=== PATIENT | female | born 1960 | race Caucasian/White ===

== ENCOUNTER → 2020-07-09 10:26 | Outpatient (BNVA) | payer MEDICARE, SELFPAY | PROVIDERS: Referring Provider Neurological Surgery; Visit Provider Specialist | DX: G43.109 Migraine with aura, not intractable, without status migrainosus (principal); F43.10 Post-traumatic stress disorder, unspecified; F41.9 Anxiety disorder, unspecified; F32.9 Major depressive disorder, single episode, unspecified; E66.01 Morbid (severe) obesity due to excess calories; Z68.37 Body mass index [BMI] 37.0-37.9, adult | CPT/HCPCS: 99204 ==

== ENCOUNTER 2020-07-17 13:46 | Outpatient (CLI) | payer MEDICARE, OTHER, SELFPAY ==
--- NOTE | 2020-07-17 13:56 | MR_ITS ---
WS: [id number] MRI BRAIN WITHOUT CONTRAST HISTORY: HEADACHE COMPARISON: None available. TECHNIQUE: Diffusion imaging, multiplanar T1, T2 and FLAIR imaging obtained. No evidence for acute infarct or hemorrhage. Pitts-white matter differentiation is normal. No remote or acute infarcts are volume loss. Ventricles and extra-axial spaces are normal. No inferior displacement of cerebellar tonsils. The sella turcica and pituitary gland are unremarkabl e. Posterior fossa is also unremarkable. Dural venous sinuses and [place] demonstrate no abnormality on this unenhanced studies. Paranasal sinuses: Small mucous retention cysts in the floors of the maxillary sinuses. Mastoid air cells: Normal. Calvarium and scalp: Intact. MR/MR head wo con* [id number] IMPRESSION: 1. Unremarkable noncontrast CT brain. 2. No acute infarct or hemorrhage.
== END 2020-07-17 13:47 | disposition home or self-care (01) ==
PROVIDERS: PCP Nurse Practitioner Family; Visit Provider Specialist
DX: R51 Headache (principal)
CPT/HCPCS: 70551

== ENCOUNTER → 2020-08-12 14:24 | Outpatient (BNVA) | payer MEDICARE, OTHER, SELFPAY | PROVIDERS: PCP Nurse Practitioner Family; Visit Provider Specialist | DX: G43.109 Migraine with aura, not intractable, without status migrainosus (principal); R56.9 Unspecified convulsions | CPT/HCPCS: 95816 ==

== ENCOUNTER → 2020-12-18 11:31 | Outpatient (BNVA) | payer MEDICARE, OTHER, SELFPAY | PROVIDERS: PCP Nurse Practitioner Family; Visit Provider Specialist | DX: R56.9 Unspecified convulsions (principal); G43.109 Migraine with aura, not intractable, without status migrainosus; F43.10 Post-traumatic stress disorder, unspecified; F41.9 Anxiety disorder, unspecified; F32.9 Major depressive disorder, single episode, unspecified; E66.01 Morbid (severe) obesity due to excess calories; Z68.39 Body mass index [BMI] 39.0-39.9, adult | CPT/HCPCS: 99214 ==

== ENCOUNTER → 2022-12-28 14:22 | Outpatient (BNVA) | payer MEDICARE, OTHER, MEDICAID, SELFPAY | PROVIDERS: PCP Nurse Practitioner Family; Visit Provider Internal Medicine | DX: E04.2 Nontoxic multinodular goiter (principal); E06.3 Autoimmune thyroiditis; E03.8 Other specified hypothyroidism; F41.9 Anxiety disorder, unspecified; F32.9 Major depressive disorder, single episode, unspecified; R00.0 Tachycardia, unspecified; Z79.890 Hormone replacement therapy; Z87.440 Personal history of urinary (tract) infections | CPT/HCPCS: 36415; 84439; 84443; 99204; 99214 ==

== ENCOUNTER 2023-01-28 13:29 | Outpatient (CLI) | payer MEDICARE, MEDICAID, OTHER, SELFPAY ==
--- NOTE | 2023-01-28 13:00 | USR_ITS ---
PROCEDURE INFORMATION: Exam: US Soft Tissue Head and Neck, Thyroid Exam date and time: 01/28/2023 1:57 PM Age: 62 years old Clinical indication: Abnormal findings; Other abnormal lab; Abnormal blood work; Additional info: Thyroid nodules TECHNIQUE: Imaging protocol: Real-time ultrasound scan of the neck with image documentation. Exam focused on the thyroid. COMPARISON: MR head wo con* [id number] 07/17/2020 1:46 PM FINDINGS: Thyroid gland is small, atrophic and heterogeneous in echotexture and may be secondary to chronic thyroiditis. 1.1 x 0.6 x 0.8 cm circumscribed hypoechoic solid nodule right lobe, indeterminate (TR 4). No other nodules identified. Solitary benign-appearing lymph node right cervical janina chain. No suspicious lymph nodes detected. US/US thyroid [id number] IMPRESSION: 1. Atrophic thyroid gland that may be secondary to chronic thyroiditis. 2. 1.1 x 0.6 x 0.8 cm circumscribed solid nodule right lobe, nonspecific. Recommend repeat ultrasound exam in 1 year for continued surveillance.
[2023-01-28 15:00] LABS: Free T4 Free Thyroxine 1.02 ng/dL (0.82-1.77)
== END 2023-01-28 13:30 | disposition home or self-care (01) ==
LOC: LAB 13:34
PROVIDERS: PCP Nurse Practitioner Family; Visit Provider Internal Medicine
DX: E03.8 Other specified hypothyroidism (principal); E04.2 Nontoxic multinodular goiter; E06.3 Autoimmune thyroiditis; F32.9 Major depressive disorder, single episode, unspecified; F41.9 Anxiety disorder, unspecified
CPT/HCPCS: 36415; 76536; 84439; 84443

== ENCOUNTER → 2023-03-03 14:18 | Outpatient (BNVA) | payer MEDICARE, MEDICAID, OTHER, SELFPAY | PROVIDERS: PCP Nurse Practitioner Family; Visit Provider Internal Medicine | DX: E03.8 Other specified hypothyroidism (principal); E06.3 Autoimmune thyroiditis; E04.2 Nontoxic multinodular goiter; R00.0 Tachycardia, unspecified; Z78.0 Asymptomatic menopausal state; N95.0 Postmenopausal bleeding; Z75.8 Other problems related to medical facilities and other health care; Z79.890 Hormone replacement therapy | CPT/HCPCS: 99214 ==

== ENCOUNTER → 2023-04-01 14:03 | Outpatient (BNVA) | payer MEDICARE, OTHER, SELFPAY | PROVIDERS: Visit Provider Family Medicine | DX: D50.9 Iron deficiency anemia, unspecified (principal); Z86.2 Personal history of diseases of the blood and blood-forming organs and certain disorders involving the immune mechanism; Z13.6 Encounter for screening for cardiovascular disorders; E03.8 Other specified hypothyroidism; E06.3 Autoimmune thyroiditis | CPT/HCPCS: 80053; 80061; 82728; 83550; 84439; 84443; 84480; 85025 ==

== ENCOUNTER → 2023-06-03 13:25 | Outpatient (BNVA) | payer MEDICARE, OTHER, MEDICAID, SELFPAY | PROVIDERS: Visit Provider Family Medicine | DX: R79.89 Other specified abnormal findings of blood chemistry (principal) | CPT/HCPCS: 80048 ==

== ENCOUNTER 2023-07-23 17:13 | Outpatient (CLI) | payer MEDICARE, OTHER, SELFPAY | END 2023-07-23 17:14 | disposition home or self-care (01) | LOC: RAD 17:14 | PROVIDERS: PCP Family Medicine; Visit Provider Family Medicine | DX: E04.2 Nontoxic multinodular goiter (principal); E03.8 Other specified hypothyroidism; E06.3 Autoimmune thyroiditis; R00.0 Tachycardia, unspecified; Z78.0 Asymptomatic menopausal state; N95.0 Postmenopausal bleeding; Z86.2 Personal history of diseases of the blood and blood-forming organs and certain disorders involving the immune mechanism; Z79.890 Hormone replacement therapy | CPT/HCPCS: 99214 ==

== ENCOUNTER 2023-08-20 11:47 | Outpatient (CLI) | payer MEDICARE, OTHER, SELFPAY ==
--- NOTE | 2023-08-20 12:08 | MM_ITS ---
WS: [id number] BILATERAL SCREENING DIGITAL TOMOSYNTHESIS MAMMOGRAM WITH CAD HISTORY: screening mammogram COMPARISON: 12/01/2019. This mammogram which has been submitted from an outside medical institution is nearly nondiagnostic as submitted. Bilateral CC and MLO views with tomosynthesis and synthetic mammography submitted. Computer aided det ection analyzed. Breast composition: There are scattered areas of fibroglandular density. No suspicious masses, microc alcifications or architectural distortion. The well-circumscribed nodule measuring 9 mm in the anteri or RIGHT breast near 12:00 was also present on the prior study without increase in size. IMPRESSION: MM/[place] [id number] BI-RADS: 2-Benign FOLLOW UP: 1 Year Follow-up
== END 2023-08-20 11:48 | disposition home or self-care (01) ==
LOC: RAD 11:48
PROVIDERS: PCP Family Medicine; Visit Provider Family Medicine
DX: Z12.31 Encounter for screening mammogram for malignant neoplasm of breast (principal); R30.0 Dysuria
CPT/HCPCS: 77063; 77067; 81000; 87077; 87086; 87184

== ENCOUNTER → 2023-11-25 11:11 | Outpatient (BNVA) | payer MEDICARE, OTHER, SELFPAY | PROVIDERS: PCP Family Medicine; Visit Provider Internal Medicine | DX: Z86.2 Personal history of diseases of the blood and blood-forming organs and certain disorders involving the immune mechanism (principal); E04.2 Nontoxic multinodular goiter; E03.8 Other specified hypothyroidism; E06.3 Autoimmune thyroiditis; R00.0 Tachycardia, unspecified; Z78.0 Asymptomatic menopausal state; N95.0 Postmenopausal bleeding; Z79.890 Hormone replacement therapy | CPT/HCPCS: 99214 ==

== ENCOUNTER → 2024-04-05 11:04 | Outpatient (BNVA) | payer MEDICARE, OTHER, SELFPAY | PROVIDERS: PCP Family Medicine; Visit Provider Internal Medicine | DX: Z86.2 Personal history of diseases of the blood and blood-forming organs and certain disorders involving the immune mechanism (principal); E04.2 Nontoxic multinodular goiter; E03.8 Other specified hypothyroidism; E06.3 Autoimmune thyroiditis; R00.0 Tachycardia, unspecified; Z78.0 Asymptomatic menopausal state; N95.0 Postmenopausal bleeding; Z79.890 Hormone replacement therapy | CPT/HCPCS: 99214 ==

== ENCOUNTER 2024-05-04 06:00 | Outpatient (CLI) | payer MEDICARE, OTHER, SELFPAY | END 2024-05-04 06:01 | disposition home or self-care (01) | LOC: RAD 07-16 07:07 | PROVIDERS: PCP Family Medicine; Visit Provider Psychiatry & Neurology Neurology | DX: G25.0 Essential tremor (principal); R56.9 Unspecified convulsions; E55.9 Vitamin D deficiency, unspecified; G45.9 Transient cerebral ischemic attack, unspecified; L30.4 Erythema intertrigo; Z13.6 Encounter for screening for cardiovascular disorders; F41.9 Anxiety disorder, unspecified; F32.9 Major depressive disorder, single episode, unspecified; E53.8 Deficiency of other specified B group vitamins | CPT/HCPCS: 36415; 80053; 81241; 82306; 82607; 82746; 83090; 83735; 83921; 85025; 85210; 85300; 85613; 85730; 86140; 86146; 86147 ==

== ENCOUNTER → 2024-05-04 10:00 | Outpatient (BNVA) | payer MEDICARE, OTHER, SELFPAY | PROVIDERS: PCP Family Medicine; Visit Provider Psychiatry & Neurology Neurology | DX: R27.0 Ataxia, unspecified (principal); G25.0 Essential tremor; G43.111 Migraine with aura, intractable, with status migrainosus; R29.898 Other symptoms and signs involving the musculoskeletal system; G45.9 Transient cerebral ischemic attack, unspecified; R47.89 Other speech disturbances | CPT/HCPCS: 99203 ==

== ENCOUNTER 2024-05-16 12:47 | Outpatient (CLI) | payer MEDICARE, OTHER, SELFPAY ==
--- NOTE | 2024-05-16 13:00 | USCV_ITS ---
Staci Malave Age: 63 Gender: F : 1960 Exam Date: 05/16/2024 13:12 Ordering Phys: Javier Gallegos MD Technologist: JU [place]am Location[place] [facility] [place]: TIA Risk Factors: Previous Vascular Surgery: Right Brachial BP: / Left Brachial BP: / Right Left Velocity (cm/s) Spectral Plaque Velocity (cm/s) Spectral Plaque Syst/Diast Broadening Syst/Diast Broadening 88.70/ 21.60 Prox CCA 89.60 / 20.90 84.20/ 25.90 Mid CCA 90.50 / 23.80 82.70/ 27.50 Distal CCA 78.70 / 23.50 65.20/ 16.10 Prox ICA 61.20 / 13.30 68.10/ 24.90 Mid ICA 69.40 / 25.50 79.10/ 27.60 Distal ICA 50.40 / 21.40 58.00 ECA 84.70 1.00 ICA/CCA 0.90 Antegrade Vertebral Antegrade 38.20/ 13.30 cm/s 54.10/ 13.30 cm/s Tri Subclavian Tri 65.80 106.1 0 CONCLUSIONS Intimal thickening in the common carotid arteries and internal carotid arteries bilaterally. Right ICA stenosis <50%. Left ICA stenosis <50%. Normal antegrade Doppler flow noted in the right vertebral artery. Normal antegrade Doppler flow noted in the left vertebral artery. Vincent De León MD (Electronically Signed) Final Date: 16 May 2024 14:46 S
== END 2024-05-16 12:48 | disposition home or self-care (01) ==
LOC: RAD 12:48
PROVIDERS: PCP Family Medicine; Visit Provider Psychiatry & Neurology Neurology
DX: I65.23 Occlusion and stenosis of bilateral carotid arteries (principal)
CPT/HCPCS: 93306; 93880

== ENCOUNTER 2024-06-08 15:15 | Outpatient (CLI) | payer MEDICARE, OTHER, SELFPAY ==
--- NOTE | 2024-06-08 15:15 | MR_ITS ---
WS: [id number] MRI LUMBAR SPINE WITH AND WITHOUT CONTRAST. HISTORY: M48.061 - Spinal stenosis, lumbar region without neurogen... COMPARISON: None available. TECHNIQUE: Sagittal and axial multisequence imaging is submitted. Postcontrast imaging MultiHance 18 mL IV. Moderate increase in thoracic kyphosis. Mild curvature thoracic and lumbar spines. Benign hemangioma at T3 and T5 and T12. No cord compression. Mild increase in the lumbar lordosis. No fractures or marrow edema. Disc spaces are well preserved. Disc spaces and vertebral body heights are well-preserved. Conus terminates normally at L1-2 disc level. L1-L2: Normal. L2-L3: Very mild disc bulging and facet arthritis. No stenosis. L3-L4: Mild annular disc bulging asymmetric to the LEFT. LEFT foraminal small disc protrusion. Mild l igamentum flavum and facet arthritis. There is mild disc encroachment upon the LEFT L3 and L4 nerve r oots. Mild foraminal stenosis. L4-L5: Mild disc bulging and mild facet and ligamentum flavum hypertrophy. No stenosis. L5-S1: Mild disc bulging with no disc protrusion or stenosis. No discitis or osteomyelitis. Normal vertebral body alignment. No mass. The conus is normal. There is no mass along the nerve roots. There is intermediate signal mass associated with the central RIGHT renal pelvis measuring 4.5 x 4.1 cm. There may have been partial enhancement on the postcontrast exam. MR/MR lumbar spine wo/w con [id number] IMPRESSION: 1. No high-grade central or foraminal stenosis. 2. Mild LEFT foraminal stenosis at L3-4 with very mild disc encroachment upon the L3 and L4 nerve roots. 3. Soft tissue mass in the RIGHT renal pelvis measures 4.5 x 4.1 cm. Recommend follow-up renal mass CT protocol for further evaluation. Multiphase CT should be performed. 4. No mass or abnormal enhancement near the cauda equina.
--- NOTE | 2024-06-08 16:00 | MR_ITS ---
WS: [id number] MRI BRAIN WITH AND WITHOUT CONTRAST HISTORY: R56.9 - Unspecified convulsions COMPARISON: 07/17/2020 TECHNIQUE: Multiplanar imaging performed through the brain with MultiHance 18 ml's IV. Subcortical diffusion abnormality in the anterior LEFT frontal lobe may represent a small lacunar inf arct. No T2 shine through is identified. No additional diffusion abnormalities.. Mild small vessel is chemic disease. No prior infarct. Mild atrophy. No hemorrhage. No susceptibility artifacts or prior lacunar infarcts. No hippocampal atrophy. Ventricles and extra-axial spaces are normal. Clivus and pituitary gland are normal. Visualized posterior fossa and brainstem are also normal. Postcontrast images are negative for masses or vascular malformations. Dural venous sinuses are normal. Paranasal sinuses: Well aerated with no significant disease. Mastoid air cells: Normal. Calvarium and scalp: Normal. MR/MR head wo/w con [id number] IMPRESSION: 1. Small focal area of diffusion abnormality in the subcortical LEFT frontal l obe. This is most likely a very small acute lacunar infarct. No additional sign al abnormalities are identified on the diffusion imaging. 2. Very minimal small vessel ischemic disease. 3. No large territory infarct or hemorrhage. 4. No mass.
[2024-06-08] MEDS: gadobenate dimeglumine 20 mL vial IV (16:07)
== END 2024-06-08 15:16 | disposition home or self-care (01) ==
LOC: RAD 15:16
PROVIDERS: PCP Family Medicine; Visit Provider Psychiatry & Neurology Neurology
DX: M48.061 Spinal stenosis, lumbar region without neurogenic claudication (principal); R56.9 Unspecified convulsions; G43.111 Migraine with aura, intractable, with status migrainosus; G45.9 Transient cerebral ischemic attack, unspecified; M51.37 Other intervertebral disc degeneration, lumbosacral region; M47.896 Other spondylosis, lumbar region
CPT/HCPCS: 70553; 72158; A9577

== ENCOUNTER 2024-07-05 10:55 | Oncology outpatient (recurring) (ONCR) | payer MEDICARE, OTHER, SELFPAY ==
[2024-07-05] MEDS: cyanocobalamin 1,000 mcg/mL SDV 1000 MCG IM (11:39)
[2024-07-05 11:50] LABS: Basophils # 0.1 10^3/uL (0.0-0.1); Basophils % 0.6 %; Eosinophils # 0.3 10^3/uL (0.0-0.8); Eosinophils % 3.2 %; Hematocrit 38.3 % (36-47); Lymphocytes # 3.3 10^3/uL (0.8-4.8); Lymphocytes % 37.8 %; Mean Corpuscular HGB Conc 32.6 g/dL (30-55); Mean Corpuscular Hemoglobin 38.9 pg (27-33); Mean Corpuscular Volume 119.3 fl (85-98); Mean Platelet Volume 12.9 fL (7.4-10.4); Monocytes # 0.6 10^3/uL (0.2-0.9); Monocytes % 6.5 %; Neutrophils # 4.49 10^3/uL (1.8-7.7); Neutrophils % 51.8 %; Nucleated Red Blood Cells % 0 %; Platelet Count 312 10^3/cmm (157-399); Red Blood Count 3.21 10^6/uL (3.85-5.65); Red Cell Distribution Width 16.9 % (12.1-15.1); White Blood Count 8.66 10^3/uL (3.29-11.43)
[2024-07-05 12:09] LABS: Alanine Aminotransferase 30 U/L (0-33); Albumin Level 4.5 g/dL (3.5-5.2); Alkaline Phosphatase 109 U/L (35-105); Anion Gap 15.9 (5-19); Aspartate Amino Transferase 26 U/L (0-32); Blood Urea Nitrogen 17 mg/dL (8-23); Calcium 9.7 mg/dL (8.5-10.5); Carbon Dioxide 21 mmol/L (22-29); Chloride 106 mmol/L (98-107); Creatinine Clr Calc Pharmacy 38.6573; Globulin 3.5 g/dL (1.3-4.6); Glomerular Filtration Rate 32.6 mL/min (90-130); Glucose 99 mg/dL (65-115); Iron 55 ug/dL (37-145); Lactate Dehydrogenase 174 U/L (135-214); Osmolality Calculated 290 mOsm/kg (285-295); Percent Saturation 15.5 % (20-50); Potassium 3.9 mmol/L (3.5-5.1); Sodium 139 mmol/L (136-145); Total Bilirubin 0.2 mg/dL (0.15-1.2); Total Iron Binding Capacity 353 mcg/dl; Unsaturated Iron Binding 298 ug/dL (112-347)
== END 2024-07-08 23:59 | disposition home or self-care (01) ==
PROVIDERS: Internal Medicine Medical Oncology; PCP Family Medicine; Visit Provider Psychiatry & Neurology Neurology
DX: Z53.9 Procedure and treatment not carried out, unspecified reason (principal); D64.9 Anemia, unspecified
CPT/HCPCS: 36415; 80053; 83540; 83550; 83615; 85025; 86340; 96372; 99205; J3420

== ENCOUNTER 2024-07-05 11:51 | Outpatient (CLI) | payer MEDICARE, OTHER, SELFPAY ==
[2024-07-05 12:51] LABS: Free T4 Free Thyroxine 1.28 ng/dL (0.82-1.77); Thyroid Stimulating Hormone 0.06 uIU/mL (0.27-4.20)
== END 2024-07-05 11:52 | disposition home or self-care (01) ==
LOC: LAB 11:53
PROVIDERS: Visit Provider Internal Medicine
DX: Z86.2 Personal history of diseases of the blood and blood-forming organs and certain disorders involving the immune mechanism (principal); E04.2 Nontoxic multinodular goiter; E03.8 Other specified hypothyroidism; E06.3 Autoimmune thyroiditis
CPT/HCPCS: 36415; 84439; 84443

== ENCOUNTER 2024-07-28 14:12 | Outpatient (CLI) | payer MEDICARE, OTHER, SELFPAY ==
--- NOTE | 2024-07-28 14:15 | US_ITS ---
WS: [id number] THYROID ULTRASOUND HISTORY: multiple nodules COMPARISON: 01/28/2023 Right lobe: 0.9 cm x 0.9 cm x 2.2 cm (w x ap x l). Volume: 0.9 cm3. Extremely small heterogeneous gland. There is a hypoechoic well-circumscribed soft tissue nodule asso ciated with the superior pole of the gland. This nodule measures 0.8 x 0.8 x 0.8 cm and is unchanged in size and appearance as compared to 01/28/2023. Left lobe: 1.0 cm x 1.0 cm x 2.6 cm (w x ap x l). Volume: 1.2 cm3. Atrophic heterogeneous gland. No discrete mass. Isthmus: 0.3 cm. Small LEFT cervical chain lymph node. US/US thyroid [id number] IMPRESSION: 1. Stable RIGHT thyroid nodule measuring 0.8 x 0.8 x 0.8 cm. No increased vasc ularity. Recommend yearly evaluation due to its appearance. There are no echoge rolando foci. 2. Marked atrophy and heterogeneity otherwise of the thyroid.
== END 2024-07-28 14:13 | disposition home or self-care (01) ==
LOC: RAD 14:14
PROVIDERS: PCP Family Medicine; Visit Provider Internal Medicine
DX: E04.1 Nontoxic single thyroid nodule (principal); E03.8 Other specified hypothyroidism; E06.3 Autoimmune thyroiditis; E03.4 Atrophy of thyroid (acquired)
CPT/HCPCS: 76536

== ENCOUNTER 2024-08-02 14:15 | Oncology outpatient (recurring) (ONCR) | payer MEDICARE, OTHER, SELFPAY ==
[2024-07-13] MEDS: cyanocobalamin 1,000 mcg/mL SDV 1000 MCG IM (15:37)
[2024-07-20] MEDS: cyanocobalamin 1,000 mcg/mL SDV 1000 MCG IM (15:35)
[2024-08-02 14:42] LABS: Basophils % 0.3 %; Eosinophils # 0.2 10^3/uL (0.0-0.8); Eosinophils % 2.4 %; Hematocrit 42.3 % (36-47); Lymphocytes # 3.2 10^3/uL (0.8-4.8); Mean Corpuscular HGB Conc 31.7 g/dL (30-55); Mean Corpuscular Hemoglobin 35.4 pg (27-33); Mean Corpuscular Volume 111.6 fl (85-98); Mean Platelet Volume 13.2 fL (7.4-10.4); Monocytes # 0.5 10^3/uL (0.2-0.9); Monocytes % 5.5 %; Neutrophils # 5.34 10^3/uL (1.8-7.7); Neutrophils % 57.5 %; Nucleated Red Blood Cells % 0 %; Platelet Count 248 10^3/cmm (157-399); Red Blood Count 3.79 10^6/uL (3.85-5.65); Red Cell Distribution Width 17.3 % (12.1-15.1); White Blood Count 9.29 10^3/uL (3.29-11.43)
[2024-08-02 15:02] LABS: Alanine Aminotransferase 19 U/L (0-33); Albumin Level 4.1 g/dL (3.5-5.2); Alkaline Phosphatase 96 U/L (35-105); Anion Gap 13.7 (5-19); Aspartate Amino Transferase 19 U/L (0-32); Blood Urea Nitrogen 10 mg/dL (8-23); Carbon Dioxide 24 mmol/L (22-29); Chloride 107 mmol/L (98-107); Globulin 3.3 g/dL (1.3-4.6); Glomerular Filtration Rate 35.1 mL/min (90-130); Glucose 85 mg/dL (65-115); Lactate Dehydrogenase 135 U/L (135-214); Osmolality Calculated 290 mOsm/kg (285-295); Potassium 3.7 mmol/L (3.5-5.1); Sodium 141 mmol/L (136-145); Total Bilirubin 0.3 mg/dL (0.15-1.2); Total Protein 7.4 g/dL (6.6-8.7)
[2024-08-02 15:10] LABS: Slide Review Slide Review Perform
[2024-08-02 15:17] LABS: Vitamin B12 472 pg/mL (232-1245)
[2024-08-02 15:25] LABS: Folate Level 3.6 ng/mL (4.8-37.3)
[2024-08-02] MEDS: cyanocobalamin 1,000 mcg/mL SDV 1000 MCG IM (16:15)
[2024-08-08 10:24] LABS: Methylmalonic Acid 260 nmol/L (69-390)
== END 2024-08-07 23:59 | disposition home or self-care (01) ==
PROVIDERS: Internal Medicine Medical Oncology; PCP Family Medicine; Visit Provider Psychiatry & Neurology Neurology
DX: D64.9 Anemia, unspecified (principal); E53.8 Deficiency of other specified B group vitamins; Z79.899 Other long term (current) drug therapy
CPT/HCPCS: 36415; 80053; 82607; 82746; 83615; 83921; 85025; 96372; 99214; J3420

== ENCOUNTER 2024-10-24 12:48 | Oncology outpatient (recurring) (ONCR) | payer MEDICARE, OTHER, SELFPAY ==
[2024-10-24 13:14] LABS: Basophils # 0.1 10^3/uL (0.0-0.1); Basophils % 0.8 %; Eosinophils # 0.3 10^3/uL (0.0-0.8); Eosinophils % 3.3 %; Hematocrit 44.3 % (36-47); Lymphocytes % 39.5 %; Mean Corpuscular HGB Conc 30.9 g/dL (30-55); Mean Corpuscular Hemoglobin 28.9 pg (27-33); Mean Corpuscular Volume 93.5 fl (85-98); Mean Platelet Volume 12.9 fL (7.4-10.4); Monocytes # 0.5 10^3/uL (0.2-0.9); Monocytes % 6.2 %; Neutrophils # 3.78 10^3/uL (1.8-7.7); Neutrophils % 49.9 %; Nucleated Red Blood Cells % 0 %; Platelet Count 219 10^3/cmm (157-399); Red Blood Count 4.74 10^6/uL (3.85-5.65); Red Cell Distribution Width 15.9 % (12.1-15.1); White Blood Count 7.57 10^3/uL (3.29-11.43)
[2024-10-24 13:37] LABS: Alanine Aminotransferase 23 U/L (0-33); Albumin Level 4.2 g/dL (3.5-5.2); Alkaline Phosphatase 107 U/L (35-105); Anion Gap 17.8 (5-19); Aspartate Amino Transferase 22 U/L (0-32); Blood Urea Nitrogen 15 mg/dL (8-23); Calcium 9.3 mg/dL (8.5-10.5); Carbon Dioxide 23 mmol/L (22-29); Chloride 107 mmol/L (98-107); Globulin 3.3 g/dL (1.3-4.6); Glomerular Filtration Rate 45.2 mL/min (90-130); Glucose 83 mg/dL (65-115); Osmolality Calculated 298 mOsm/kg (285-295); Potassium 3.8 mmol/L (3.5-5.1); Sodium 144 mmol/L (136-145); Total Bilirubin 0.3 mg/dL (0.15-1.2); Total Protein 7.5 g/dL (6.6-8.7)
[2024-10-24 13:53] LABS: Vitamin B12 515 pg/mL (232-1245)
[2024-10-24 13:55] LABS: Folate Level 7.8 ng/mL (4.8-37.3)
== END 2024-11-07 23:59 | disposition home or self-care (01) ==
PROVIDERS: Nurse Practitioner; PCP Family Medicine; Visit Provider Psychiatry & Neurology Neurology
DX: E53.8 Deficiency of other specified B group vitamins (principal); Z79.899 Other long term (current) drug therapy; Z78.0 Asymptomatic menopausal state; G43.109 Migraine with aura, not intractable, without status migrainosus
CPT/HCPCS: 36415; 80053; 82607; 82746; 85025; 99214

== ENCOUNTER → 2024-11-14 13:00 | Outpatient (BNVA) | payer MEDICARE, OTHER, SELFPAY | PROVIDERS: PCP Family Medicine; Visit Provider Psychiatry & Neurology Neurology | DX: R27.0 Ataxia, unspecified; G43.111 Migraine with aura, intractable, with status migrainosus; R25.1 Tremor, unspecified; R29.898 Other symptoms and signs involving the musculoskeletal system; G45.9 Transient cerebral ischemic attack, unspecified; R47.89 Other speech disturbances | CPT/HCPCS: 99212 ==

== ENCOUNTER 2024-12-13 14:10 | Outpatient (CLI) | payer MEDICARE, OTHER, SELFPAY ==
--- NOTE | 2024-12-13 14:13 | MM_ITS ---
WS: [id number] Bilateral screening 3D tomosynthesis digital mammogram, 12/13/2024 2:14 PM Clinical Data: SCREEN Comparison: 08/20/2023 Findings: No spiculated masses or clustered calcifications are seen. There are no secondary signs of carcinoma. The soft tissue nodule in the anterior right breast still measures 1.0 cm and has a well-defined smooth border. MM/MM scr BI tomosynthesis [id number] Impression: Negative bilateral mammogram unchanged. Recommend annual screening mammograms. BIRADS: 1 - Negative. FOLLOW UP: 1 Year Follow-up DENSITY: There are scattered areas of fibroglandular density. The CAD template checker was used
== END 2024-12-13 14:11 | disposition home or self-care (01) ==
LOC: RAD 14:11
PROVIDERS: PCP Nurse Practitioner Family; Visit Provider Nurse Practitioner Family
DX: Z12.31 Encounter for screening mammogram for malignant neoplasm of breast (principal); N63.10 Unspecified lump in the right breast, unspecified quadrant; R92.323 Mammographic fibroglandular density, bilateral breasts
CPT/HCPCS: 77063; 77067

== ENCOUNTER → 2024-12-14 13:36 | Outpatient (BNVA) | payer MEDICARE, OTHER, SELFPAY | PROVIDERS: PCP Nurse Practitioner Family; Visit Provider Orthopaedic Surgery | DX: M54.50 Low back pain, unspecified (principal) | CPT/HCPCS: 72110; 99204 ==

== ENCOUNTER → 2025-04-17 15:04 | Outpatient (BNVA) | payer MEDICARE, OTHER, SELFPAY | PROVIDERS: PCP Nurse Practitioner Family; Visit Provider Psychiatry & Neurology Neurology | DX: G43.111 Migraine with aura, intractable, with status migrainosus (principal); E55.9 Vitamin D deficiency, unspecified; R27.0 Ataxia, unspecified; G25.0 Essential tremor; R29.898 Other symptoms and signs involving the musculoskeletal system; G45.9 Transient cerebral ischemic attack, unspecified; R47.89 Other speech disturbances | CPT/HCPCS: 36415; 80053; 82306; 82607; 99212 ==